=== PATIENT | female | born 1965 | race African-American/Black ===

== ENCOUNTER 2017-10-08 12:46 | Emergency (ER) | payer BC, SELFPAY ==
[2017-10-08] MEDS ORDERED: Ondansetron HCl/PF 4 MG/2 ML Vial ONE (13:10)
[2017-10-08 13:45] LABS: Hematocrit 36.7 % (36.0-47.0); Mean Platelet Volume 8.4 fL (7.4-10.4); Red Blood Cell (RBC) Count 4.38 mill/uL (4.20-5.40)
[2017-10-08 13:46] LABS: Hypochromia SLIGHT = 6-15 cells (100X) (0-5/hpf); Neutrophil 52 % (42-75)
[2017-10-08 13:49] LABS: ALT (SGPT) 17 U/L (8-55); AST (SGOT) 20 U/L (5-34); Alkaline Phosphatase 76 U/L (40-150); Anion Gap 17 mmol/L (10-20); BUN (Urea Nitrogen) 13 mg/dL (9.8-20.1); Bilirubin, Total 0.4 mg/dL (0.2-1.2); Calc. Creatinine Clearance 0 mL/min (70-130); Calcium 9.7 mg/dL (7.8-10.44); Carbon Dioxide 23 mmol/L (22-29); Chloride 104 mmol/L (98-107); Estimated GFR-MDRD Greater than 90; Globulin 3.2 g/dL (2.4-3.5); Lipase 10 U/L (8-78); Protein, Total 7.3 g/dL (6.0-8.3)
--- NOTE | 2017-10-08 14:07 | CT ---
NONCONTRAST ENHANCED CT IMAGES ABDOMEN AND PELVIS: Date: 10/08/17 HISTORY: Back pain, worse for last 3 days. FINDINGS: Noncontrast enhanced CT images of the abdomen and pelvis demonstrate the lung bases to be unremarkabl e. No evidence of free intraperitoneal air is seen. The liver, spleen, gallbladder, pancreas, adrenal glands, and kidneys are unremarkable. No evidence o f periaortic lymphadenopathy seen. Some descending and sigmoid colonic diverticulosis is seen. A normal appendix is seen. Some calcifications seen in the uterus compatible with calcified fibroids. The right and left ovaries demonstrate some small cysts or cystic lesions. Further workup using elective sonography and gynecol ogic consultation may be of use. IMPRESSION: No evidence of renal calculi. POS: CHERRY
[2017-10-08 14:09] LABS: Bilirubin Negative (Negative); Blood, Urine Negative (Negative); Glucose, Urine (Dipstick) Negative (Negative); Ketone, Urine Negative (Negative); Nitrite Negative (Negative); Protein, Urine (Dipstick) Negative (Neg-Trace); Urobilinogen 0.2 mg/dL (0.2-1.0)
== END 2017-10-08 14:33 | disposition home or self-care (01) ==
LOC: SCSER 12:46
DX: K52.9 Noninfective gastroenteritis and colitis, unspecified (principal); M54.9 Dorsalgia, unspecified; G89.29 Other chronic pain; E78.5 Hyperlipidemia, unspecified; I10 Essential (primary) hypertension; Z79.82 Long term (current) use of aspirin; Z79.899 Other long term (current) drug therapy
CPT/HCPCS: 74176; 80053; 81003; 83690; 84703; 85025; 96361; 96374; J2405

== ENCOUNTER 2018-06-11 16:40 | Emergency (ER) | payer OTHER, SELFPAY ==
[2018-06-11 17:05] LABS: Bilirubin Negative (Negative); Blood, Urine Large (Negative); Clarity Hazy (Clear); Glucose, Urine (Dipstick) Negative (Negative); Leukocyte Large (Negative); Nitrite Negative (Negative); Protein, Urine (Dipstick) 100 mg/dL (Neg-Trace); Specific Gravity, Urine 1.025 (1.005-1.030); pH, Urine 6.5 (5.0-9.0)
[2018-06-11 17:15] LABS: Bacteria/HPF 2+ HPF (None Seen); WBC/HPF 21-50 HPF (0-3)
[2018-06-11] MEDS ORDERED: Ondansetron ODT 4 MG TAB ONE (17:52)
--- NOTE | 2018-06-11 18:05 | CT ---
CT ABDOMEN AND PELVIS NONCONTRAST: 06/11/18 HISTORY: Flank pain. FINDINGS: Each renal collecting system, ureter, and the urinary bladder are decompressed. Lack of contrast limi ts evaluation for other abnormalities. Small hyperdense stones are apparent within the gallbladder walter men. Projecting inferior and lateral to the gastric body is a large lobulated soft tissue density mass lu suring up to 10.6 cm in length x 12.6 cm depth x 10.4 cm width. It is favored to have some involvemen t of the gastric lumen. Calcified uterine fibroids are again demonstrated. IMPRESSION: Large left upper quadrant mass favored to arise from the greater curvature of the gastric wall. Pleas e consider gastroenterologic evaluation for endoscopy and biopsy. No CT evidence of urinary tract obstruction or calcification. Cholelithiasis. POS: CHERRY
[2018-06-11] MEDS ORDERED: cefTRIAXone\\ROCEPHIN 1 GM VIAL ONE (18:30)
[2018-06-11] MEDS ORDERED: Lidocaine 1% MPF 2 ML VIAL ONE (18:30)
== END 2018-06-11 18:54 | disposition home or self-care (01) ==
LOC: SCSER 16:40
DX: N30.00 Acute cystitis without hematuria (principal); R19.02 Left upper quadrant abdominal swelling, mass and lump; E78.5 Hyperlipidemia, unspecified; I10 Essential (primary) hypertension; Z79.899 Other long term (current) drug therapy; Z79.82 Long term (current) use of aspirin
CPT/HCPCS: 74176; 81003; 81015; 87077; 87086; 87186; 96372; J0696; Q0162

== ENCOUNTER 2019-02-20 10:41 | Emergency (ER) | payer OTHER, SELFPAY ==
[2019-02-20 11:49] LABS: Eosinophils 9 % (0-10); Hemoglobin 13.7 g/dL (12.0-16.0); Large Platelets SLIGHT; Lymphocytes 32 % (21-51); MDiff Complete? YES; Mean Corpuscular HGB CONC 32.8 g/dL (32.0-36.0); Mean Corpuscular Hemoglobin 28.6 pg (27.0-31.0); Mean Corpuscular Volume 87.1 fL (78.0-98.0); Mean Platelet Volume 8.7 fL (7.4-10.4); Monocytes 14 % (0-10); Neutrophil 29 % (42-75); Platelet Count 309 thou/uL (130-400); Platelet Morphology Comment Appears Adequate; RBC Distribution Width 13.2 % (11.5-14.5); Reactive Lymphocytes 16 % (0-10); Red Blood Cell (RBC) Count 4.78 mill/uL (4.20-5.40); White Blood Cell (WBC) Count 3.3 thou/uL (4.8-10.8)
[2019-02-20 11:54] LABS: ALT (SGPT) 23 U/L (8-55); AST (SGOT) 20 U/L (5-34); Albumin 4.3 g/dL (3.5-5.0); Alkaline Phosphatase 69 U/L (40-150); Anion Gap 14 mmol/L (10-20); BUN (Urea Nitrogen) 16 mg/dL (9.8-20.1); Bilirubin, Total 0.5 mg/dL (0.2-1.2); Calc. Creatinine Clearance 0 mL/min (70-130); Carbon Dioxide 27 mmol/L (22-29); Chloride 103 mmol/L (98-107); Estimated GFR-MDRD Greater than 90; Globulin 3.2 g/dL (2.4-3.5); Glucose 97 mg/dL (70-105); Lipase 11 U/L (8-78); Potassium 3.2 mmol/L (3.5-5.1); Protein, Total 7.5 g/dL (6.0-8.3); Sodium 141 mmol/L (136-145)
== END 2019-02-20 13:10 | disposition home or self-care (01) ==
LOC: SCSER 10:41
DX: K52.9 Noninfective gastroenteritis and colitis, unspecified (principal); R11.2 Nausea with vomiting, unspecified; I10 Essential (primary) hypertension
CPT/HCPCS: 80053; 83690; 85025; 99284